=== PATIENT | female | born 1950 | race Two or more races ===

== ENCOUNTER 2023-01-01 20:31 | Emergency (ER) | payer OTHER ==
[~2023-01-01] VITALS: Ht 165.1 cm; Wt 77.1 kg
[2023-01-01] MEDS ORDERED: AVAPRO300 MG PO (20:51)
[2023-01-01] MEDS ORDERED: TRIJARDY XR 101 EACH PO (20:51)
== END 2023-01-02 01:28 | disposition home or self-care (01) ==
LOC: ER 20:31
DX: K52.89 Other specified noninfective gastroenteritis and colitis (principal); R07.89 Other chest pain; R10.9 Unspecified abdominal pain; I10 Essential (primary) hypertension; E11.9 Type 2 diabetes mellitus without complications; Z79.84 Long term (current) use of oral hypoglycemic drugs; Z88.2 Allergy status to sulfonamides